=== PATIENT | female | born 1985 | race Caucasian/White ===

== ENCOUNTER 2023-08-07 14:22 | Emergency (ER) | payer OTHER, SELFPAY ==
[2023-08-07 14:30] VITALS: BP 114/74
[2023-08-07 14:44] VITALS: BMI 27.0
[2023-08-07 14:58] VITALS: BP 115/61
[2023-08-07 15:00] VITALS: BP 113/60
[2023-08-07 15:04] LABS: % Basophils 0.4 % (0-2); % Eosinophils 0.7 % (0-6); % Immature Granulocytes 0.4 % (0-0.5); % Lymphocytes 32.1 % (20.5-51.1); % Monocytes 8.8 % (1.7-9.3); % Neutrophils 57.6 % (42.2-75.2); Absolute Eosinophils 0.1 10^3/uL (0-0.7); Absolute Lymphocytes 3.6 10^3/uL (1.2-3.4); Absolute Neutrophils 6.4 10^3/uL (1.4-6.5); Hematocrit 38.5 % (37.0-47.0); Hemoglobin 13.5 g/dL (12.0-16.0); Mean Corp Hgb Conc. 35.1 g/dL (33.0-37.0); Mean Corpuscular Hgb 33.2 pg (27.0-31.0); Mean Corpuscular Volume 94.6 fL (81.0-99.0); Mean Platelet Volume 10.4 fL (7.4-10.4); Nucleated Red Blood Cells % 0 %; Platelet Count 328 10^3/uL (130-400); Red Blood Cell Count 4.07 10^6/uL (4.20-5.40); Red Cell Dist. Width 13.3 % (11.5-14.5); White Blood Cell Count 11.1 10^3/uL (4.8-10.8)
[2023-08-07 15:26] LABS: ALT (SGPT) 27 U/L (0-35); AST (SGOT) 26 U/L (14-36); Albumin 4.4 g/dl (3.5-5.0); Alkaline Phosphatase 122 U/L (38-126); Blood Urea Nitrogen 7 mg/dl (7-17); Calcium 9.6 mg/dl (8.4-10.2); Carbon Dioxide 25 mmol/L (22-30); Chloride 102 mmol/L (98-107); Estimated Creatinine Clearance 116 ml/min; Glucose 87 mg/dl (70-99); Potassium 4.2 mmol/L (3.5-5.1); Sodium 135 mmol/L (135-145); Total Bilirubin 0.8 mg/dl (0.2-1.3); Total Protein 7.2 g/dl (6.3-8.2); eGFR > 60.00
[2023-08-07 16:00] VITALS: BP 105/93
[2023-08-07] MEDS: TORADOL 30 MG IV (16:58)
[2023-08-07] MEDS: NSS 500 IV ×2 (16:58→16:59)
[2023-08-07] MEDS: COMPAZINE 10 MG IV (16:58)
[2023-08-07 17:00] VITALS: BP 105/59
[2023-08-07] MEDS: BENADRYL 12.5 MG IV (17:01)
[2023-08-07 18:00] VITALS: BP 102/65
--- NOTE | 2023-08-07 18:08 | ED.GENMED ---
History of Present Illness
General
Chief Complaint: Visual Problem
Source: patient
Exam Limitations: none
Time Seen by Provider: 08/07/23 16:14
Nursing documentation reviewed up to this point in time: agreed with
Travel History
Have you had any contact with someone who has COVID-19?: No
Do you have any symptoms of coronavirus? Fever > 100 degrees, chills, cough, shortness of breath, sore throat, loss of taste or smell, muscle aches, or headache?: No
History of Present Illness
History of Present Illness:
Patient presents to ED secondary to sudden onset of blurred vision, followed shortly by headache, along with nausea sensation. Patient states that she has had 'migraine headache' in the past. Denies photophobia. Denies neck pain. Denies
dizziness. Denies loss of sensation or weakness. Denies recent illness. Denies recent change in medications or diet. Patient states that her symptoms occurred while she was at work, while looking on the monitor.
Review of Systems
Review of Systems
Allergies reviewed?: Yes
All Other Systems: ROS reviewed and negative except as documented in HPI and ROS
Constitutional: Reports no symptoms; Denies fever or chills
EENT: Reports no symptoms
Respiratory: Reports no symptoms
Cardiac: Reports no symptoms
ABD/GI: Reports no symptoms
: Reports no symptoms
Musculoskeletal: Reports no symptoms
Skin: Reports no symptoms
Neurological: Reports headache and other (Blurred vision)
Phy Exam
Physical Exam
Physical Exam:
Physical Exam
General: mild painful distress, not acutely ill. afebrile.
Head: nc/at. eomi. no nystagmus.
Neck: supple. no meningeal signs. normal range of motion.
Heart: s1/s2 regular rate and rhythm, no murmur. equal radial pulses.
Lungs: no acute respiratory distress. clear bilaterally
Abdomen: normal bowel sounds. not tender.
Neuro: alert and oriented. no focal neurological deficits. normal speech
Skin: no rash
Psychiatric: well kept. interactive and cooperative
Extremities: no edema. no calf tenderness.
Course
Orders/Labs/Results
Orders:
Orders
08/07/23 14:55
CMP [Comprehensive Metabolic Panel] Urgent
Complete Blood Count/With Diff Urgent
08/07/23 16:48
Diphenhydramine [Benadryl] 12.5 mg IV NOW STA
Ketorolac [Toradol] 30 mg IV NOW STA
Prochlorperazine [Compazine] 10 mg IV NOW STA
08/07/23 16:49
0.9% Sodium Chloride 500 ml [Nss] 500 ml IV BOLUS
Abnormal Lab Results
08/07/23
14:55
WBC 11.1 H 10^3/uL
(4.8-10.8)
RBC 4.07 L 10^6/uL
(4.20-5.40)
MCH 33.2 H pg
(27.0-31.0)
Absolute Lymphs (auto) 3.6 H 10^3/uL
(1.2-3.4)
Absolute Monos (auto) 1.0 H 10^3/uL
(0.1-0.6)
Creatinine 0.5 L mg/dL
(0.6-1.0)
08/07/23 14:55
08/07/23 14:55
Vital Signs
Initial and Last Documented VS:
Initial Vital Signs
Temp Pulse Resp BP Pulse Ox
98.7 F 82 18 114/74 97
08/07/23 14:30 08/07/23 14:30 08/07/23 14:30 08/07/23 14:30 08/07/23 14:30
Last Documented Vital Signs
Temp Pulse Resp BP Pulse Ox
98.7 F 69 16 102/65 98
08/07/23 14:30 08/07/23 19:00 08/07/23 19:00 08/07/23 18:00 08/07/23 19:00
MDM/Problems Addressed
MDM/Problems Addressed:
Patient reports near resolution of her symptoms after treatment. Patient otherwise remains afebrile, hemodynamically stable, and neurologically intact. As such, no indication for any imaging studies at this time. Patient feels comfortable going
home and will follow-up with her primary care physician and/or referred neurologist for reevaluation. Patient advised to return to ED with recurrent or worsening symptoms. Patient expresses understanding at time of discharge.
*Critical Care Note
Total Time (30-74mins, 75-104mins- exclusive of procedures): Not Applicable
ED Attending Note
-
Portions of this chart may have been created with voice recognition software.� Occasional wrong word or��sound alike� substitutions may have occurred due to the inherent limitations of voice recognition software.
Discharge Plan
Departure
Patient Disposition: Home (Routine Discharge)
Date of Disposition: 08/07/23
Time of Disposition: :24
Patient with high blood pressure during this ER visit?: No
Condition: Good
Discharge Problem:
Headache
Instructions: Headache, Adult (DC)
Referrals:
Rueprt Moon MD [Active] -
Otis Vargas DO [Family Provider] -
Activity Restrictions/Additional Instructions:
As discussed, please follow up with your primary care physician and/or referred neurologist for re-evaluation.
Interventions
Interventions:
*Risk Screen - Suicide Last Done: 08/07/23 14:34
*General Assessment Last Done: 08/07/23 14:34
*Neglect/Abuse Screening Last Done: 08/07/23 14:34
ED- Fall Risk Assessment Last Done: 08/07/23 17:04
*ED COVID-19 Vaccine History Last Done: 08/07/23 14:44
*Nursing Disposition Last Done: 08/07/23 19:40
ED-EENT Assessment Last Done: 08/07/23 17:33
ED- Neurological Assessment Last Done: 08/07/23 14:44
ED Swallowing Screen Last Done: 08/07/23 17:33
Discharge Date and Time
Discharge Date/Time: 08/07/23 19:40
Print Language: [id number]
== END 2023-08-07 19:40 | disposition home or self-care (01) ==
LOC: EMR 14:22
PROVIDERS: EMERGENCY PHYSICIAN Emergency Medicine; FAMILY PHYSICIAN Family Medicine
DX: R51.9 Headache, unspecified (principal)
CPT/HCPCS: 99284; 96374; 96375 ×2; 96361; 80053; 85025